=== PATIENT | male | born 1965 | race Caucasian/White ===

== ENCOUNTER → 2021-12-12 | Outpatient (CLI) | payer OTHER ==
--- NOTE | 2021-12-13 07:19 | MR ---
EXAMINATION TYPE: MR angio abdomen wo/w con DATE OF EXAM: 12/12/2021 COMPARISON: None HISTORY: UNEXPLAINED HYPERTENSION CONTRAST: Standard multiplanar, multisequence MRI departmental protocol images were obtained without contrast a nd with 10ML mL intravenous Gadavist gadolinium contrast. MR angiographic images were obtained of the abdominal and pelvis arterial system. Abdominal aorta has normal size and contour. No aneurysm. There is arterial flow demonstrated in the celiac artery and superior mesenteric artery. There is arterial flow in both renal arteries. No hemod ynamic stenosis. There is arterial flow in the inferior mesenteric artery. There is arterial flow in the common internal and external iliac arteries bilaterally. No evidence of aneurysm or dissection. N o mass effect. Kidneys have normal size and contour. Liver and spleen are intact. No adrenal mass. No evidence of pa ncreatic mass. No ascites. No sign of a bowel obstruction. IMPRESSION: Negative MR angiogram of the abdomen
== END | disposition home or self-care (01) ==
LOC: RADMRIMAIN 19:45
PROVIDERS: ATTEND Family Medicine
DX: I10 Essential (primary) hypertension (principal)
CPT/HCPCS: C8902; A9585; 74185

== ENCOUNTER → 2023-12-14 | Outpatient (CLI) | payer OTHER ==
--- NOTE | 2023-12-14 14:18 | XR ---
EXAMINATION TYPE: XR hand complete LT DATE OF EXAM: 12/14/2023 CLINICAL HISTORY: pain TECHNIQUE: Frontal, lateral and oblique images of the left hand are obtained. COMPARISON: None. FINDINGS: There is no acute fracture/dislocation evident. The joint spaces appear within normal limi ts. The overlying soft tissue appears unremarkable. IMPRESSION: There is no acute fracture or dislocation. ICD 10 NO FRACTURE, INITIAL EVALUATION
== END | disposition home or self-care (01) ==
LOC: RADXRMAIN 13:39
PROVIDERS: ATTEND Emergency Medicine
DX: S60.222A Contusion of left hand, initial encounter

== ENCOUNTER 2024-06-27 10:08 | Day surgery (SDC) | payer OTHER ==
--- NOTE | 2024-06-26 08:14 | P.HPOR ---
History of Present Illness H&P Date: 06/26/24 Chief Complaint: Left shoulder pain and stiffness The patient is a 58-year-old [id number] male who presents with progressive left shoulder pain and stiffness after an injury in October of last year. He notes persistent pain and stiffness despite conservative measures including medications and therapy. He is having pain with attempted overhead use and at night. Review of Systems Per HPI Past Medical History Past Medical History: Diabetes Mellitus, GERD/Reflux, Hyperlipidemia, Hypertension, Osteoarthritis (OA), Thyroid Disorder History of Any Multi-Drug Resistant Organisms: None Reported Past Surgical History: No Surgical Hx Reported Additional Past Anesthesia/Blood Transfusion Reaction / Comment(s): no hx anesthesia; no hx blood transfusion Smoking Status: Never smoker - Past Family History Mother Family Medical History: Diabetes Mellitus Brother(s) Family Medical History: Diabetes Mellitus Additional Family Medical History / Comment(s): two brothers with diabetes Medications and Allergies Home Medications Medication Instructions Recorded Confirmed Type Cinnamon Bark [Cinnamon] 500 mg PO BID 06/22/24 06/22/24 History Dapagliflozin Propanediol [Farxiga] 5 mg PO DAILY 06/22/24 06/22/24 History Ezetimibe [Zetia] 10 mg PO DAILY 06/22/24 06/22/24 History Glucosamine/Chondr Villalobos A Sod [Osteo 2 tab PO DAILY 06/22/24 06/22/24 History Bi-Flex Caplet] Losartan/Hydrochlorothiazide 1 tab PO DAILY 06/22/24 06/22/24 History [Losartan-Hctz 100-25 mg Tab] Meloxicam [Mobic] 15 mg PO DAILY PRN 06/22/24 06/22/24 History Metoprolol Succinate [Toprol XL] 150 mg PO DAILY 06/22/24 06/22/24 History Montelukast Sodium 10 mg PO DAILY 06/22/24 06/22/24 History Omeprazole 20 mg PO DAILY 06/22/24 06/22/24 History Potassium Chloride [Klor-Con M20] 20 meq PO BID 06/22/24 06/22/24 History Ubidecarenone [Co Q-10] 200 mg PO DAILY 06/22/24 06/22/24 History amLODIPine [Norvasc] 5 mg PO BID 06/22/24 06/22/24 History hydrALAZINE HCL [Apresoline] 50 mg PO TID 06/22/24 06/22/24 History Allergies Allergy/AdvReac Type Severity Reaction Status Date / Time No Known Allergies Allergy Verified 06/22/24 10:54 Physical Examination - Shoulder left Tenderness with palpation: anterior, bicipital groove Pain: with abduction, with forward flexion ROM: forward flexion: 100 degrees ROM: internal rotation: lower lumbar ROM: external rotation: 10 degrees Crepitus with motion: Yes Tests: internal impingement tests: positive, external impingment tests: positive Results The patient is a well-developed well-nourished male approximately 5 foot 5, 218 pounds of endomorphic habitus. HEENT exam is nonfocal, neck is supple. Passive forward elevation of the left shoulder is 120 degrees. Impingement test, Neer test are positive. Motor strength 4+/5 abduction, 5 -/5 external rotation. His distal neurovascular exam appears intact in the left upper extremity. - Diagnostic results Shoulder MRI: image reviewed (MRI of the left shoulder shows evidence of a partial-thickness tear involving the supraspinatus and infraspinatus.) Assessment and Plan Assessment: Left shoulder adhesive capsulitis Left shoulder partial-thickness rotator cuff tear Plan: I talked to the patient at length regarding his condition along with treatment options. At this point he has plateaued with conservative measures. After a thorough discussion he opts to proceed with manipulation under anesthesia of his left shoulder. Risks and benefits were discussed at length in layman's terms. We will reinstitute therapy after the procedure.
[~2024-06-27 10:08] MED LIST: LACTATED RINGERS 1,000 ML IV SCH
[2024-06-27 11:08] VITALS: TEMP 98.1
[2024-06-27] MEDS: IV FLUID CONTINUATION 1,000 ML IV ONE (11:14)
[2024-06-27] MEDS: ONDANSETRON 4 MG/2 ML VIAL IVP ONE (11:16)
[2024-06-27] MEDS: DEXAMETHASONE SOD PHOSPHATE 4 MG/ML 1 ML VIAL IV ONE (11:16)
[2024-06-27 11:17] LABS: Glucose,Whole Blood 165 mg/dL (70-110)
[2024-06-27] MEDS ORDERED: MIDAZOLAM 2 MG/2 ML VIAL ONE (12:12)
[2024-06-27] MEDS ORDERED: PROPOFOL 10 MG/ML 20 ML VIAL IV ONE (12:12)
[2024-06-27] MEDS ORDERED: LIDOCAINE 1% INJ 10MG/ML (20 ML MDV) ONE (12:12)
--- NOTE | 2024-06-27 12:21 | P.OP ---
Date of Procedure: 06/27/24 Preoperative Diagnosis: Left shoulder adhesive capsulitis Postoperative Diagnosis: Same Procedure(s) Performed: Manipulation under anesthesia left shoulder Anesthesia: MAC Surgeon: Arben Carvajal Estimated Blood Loss (ml): 0 Pathology: none sent Condition: stable Disposition: PACU Indications for Procedure: The patient is a 58-year-old male who presents with persistent left shoulder pain and stiffness despite conservative measures. A discussion of the risks and benefits of manipulation under anesthesia was made with the patient. He opted to proceed. Risks of this procedure to include fracture, tendon rupture, recurrence of stiffness, and possible need for subsequent procedures was discussed. Informed consent was obtained. Operative Findings: As below Description of Procedure: Patient was brought to the recovery room, and after induction of IV sedation the left shoulder was then gently manipulated. First with the arm at the side I obtain full external rotation. Moderate adhesions were encountered. I then obt ain full forward elevation. Again moderate adhesions were encountered. I felt I had adequate release at this point. He was then monitored until fully awake. No complications were incurred. There was no blood loss.
[2024-06-27] MEDS: HYDROmorphone 0.5 MG/0.5 ML SYRINGE IVP PRN (12:29)
[2024-06-27 12:50] LABS: Glucose,Whole Blood 199 mg/dL (70-110)
[2024-06-27 13:23] VITALS: RESP 16
[2024-06-27 13:35] VITALS: BP 134/70; PULSE 87
== END 2024-06-27 13:56 | disposition home or self-care (01) ==
LOC: OR 10:08
PROVIDERS: ATTEND Orthopaedic Surgery
DX: M75.02 Adhesive capsulitis of left shoulder (principal); M75.112 Incomplete rotator cuff tear or rupture of left shoulder, not specified as traumatic; E11.9 Type 2 diabetes mellitus without complications; E07.9 Disorder of thyroid, unspecified; K21.9 Gastro-esophageal reflux disease without esophagitis; M19.90 Unspecified osteoarthritis, unspecified site; E78.5 Hyperlipidemia, unspecified; I10 Essential (primary) hypertension; E66.9 Obesity, unspecified; Z79.899 Other long term (current) drug therapy; Z79.84 Long term (current) use of oral hypoglycemic drugs
CPT/HCPCS: 23700; J2250; J1100; J2405; J2003; J2704; J1171